=== PATIENT | female | born 2000 | race Caucasian/White ===

== ENCOUNTER 2022-11-30 15:30 | Emergency (ER) | payer MEDICAID ==
[2022-11-30 15:38] VITALS: BP 123/65
--- NOTE | 2022-11-30 16:07 | ED Physician Documentation ---
PD HPI UPPER EXT INJURY - Stated complaint Stated Complaint: L MIDDLE FINGER INJ - Chief complaint Chief Complaint: Trauma Ext - History obtained from History obtained from: Patient - History of Present Illness Location: Left, Finger Type of injury: Blunt / blow Where injury occurred: Home - Additonal information Additional information: 21-year-old female presents with left Middle finger pain after she bent it while doing dishes in the sink. She has pain at the base of the left middle finger with some bruising and swelling. Mom tried to get a finger splint at [facility] but it was not long enough that she presented here. She has attempted no other treatment or medication for this issue. PD PAST MEDICAL HISTORY - Past Medical History Past Medical History: No - Present Medications Home Medications: Ambulatory Orders Medication Instructions Recorded Confirmed Albuterol Sulf [Ventolin Hfa 1 - 2 puffs INH Q4HR PRN 11/30/22 11/30/22 Inhaler] Budesonide/Formoterol Fumarate 10.2 gm IH DAILY 11/30/22 11/30/22 [Symbicort 80-4.5 Mcg Inhaler] Montelukast [Singulair] 10 mg PO DAILY 11/30/22 11/30/22 Sertraline [Zoloft] 50 mg PO DAILY 11/30/22 11/30/22 - Allergies Allergies/Adverse Reactions: Allergies Allergy/AdvReac Type Severity Reaction Status Date / Time amoxicillin Allergy Nausea Verified 11/30/22 15:39 Penicillins Allergy Nausea Verified 11/30/22 15:39 Sulfa (Sulfonamide Allergy Rash Verified 11/30/22 15:39 Antibiotics) vancomycin Allergy Rash Verified 11/30/22 15:39 PD ED PE NORMAL - Vitals Vital signs reviewed: Yes - General General: Alert and oriented X 3, No acute distress, Well developed/nourished - Derm Derm: Normal color, Warm and dry, No rash - Extremities Extremities: Other (There is mild swelling and bruising at the base of the left middle finger, patient is able to flex and extend. There is tenderness of the base of the middle finger, no hand injuries.) Results - Vitals Vitals: Vital Signs - 24 hr 11/30/22 15:33 Temperature 36.5 C Heart Rate 86 Respiratory 15 Rate Blood Pressure 123/65 O2 Saturation 100 Oxygen O2 Source Room air PD Medical Decision Making - ED course Complexity details: reviewed results, d/w patient ED course: Patient presented with left middle finger injury as described in HPI. She is we ll-appearing on physical exam with slight bruising around the left middle finger. Obtain x-ray which is negative for signs of fracture. She was placed in a splint and advised to utilize cool compress, ibuprofen or Tylenol as needed and can use a splint for comfort through can be removed if desired. If ongoing pain after 2 weeks, patient to follow-up with PCP. Departure - Departure Disposition: 01 Home, Self Care Condition: Good Instructions: ED Sprain Finger
--- NOTE | 2022-11-30 16:12 | XRAY Report ---
PROCEDURE: Finger(s) RT INDICATIONS: Trauma TECHNIQUE: AP hand, 3 views of the third finger(s) acquired. COMPARISON: None FINDINGS: Bones: No fractures or dislocations. No suspicious bony lesions. Soft tissues: No suspicious soft tissue calcifications. IMPRESSION: No visualized acute fracture or dislocation. However, occult injury cannot be excluded. Recommend segun rt interval imaging follow-up in 7-10 days as clinically indicated for additional evaluation. Reviewed by: Farzaneh Vazquez MD on 11/30/2022 4:11 PM PST Approved by: Farzaneh Vazquez MD on 11/30/2022 4:11 PM PST Station ID: [id number]
== END 2022-11-30 16:43 | disposition home or self-care (01) ==
LOC: ED 15:30
DX: S63.613A Unspecified sprain of left middle finger, initial encounter (principal); X58.XXXA Exposure to other specified factors, initial encounter; Y93.G1 Activity, food preparation and clean up
CPT/HCPCS: 99283